=== PATIENT | female | born 1995 | race Caucasian/White ===

== ENCOUNTER 2017-03-31 14:15 | Inpatient (IN) | payer MEDICAID ==
[~2017-03-31] VITALS: Ht 157.5 cm; Wt 77.3 kg
[~2017-03-31 14:15] MED LIST: IBUP-1222 PO; ONDA4TAB7 PO; OXYC-302 PO; PREN1TAB60 PO
[2017-03-31] MEDS ORDERED: OXYTOCIN 30U/ 0.9% NaCL 500ML 500 ML IV PRN (22:00)
[2017-03-31] MEDS ORDERED: OXYTOCIN 30U/ 0.9% NaCL 500ML 500 ML IV ONE (22:00)
[2017-03-31] MEDS ORDERED: ONDANSETRON 2MG/ML, 2ML IVPush PRN (22:00)
[2017-03-31] MEDS ORDERED: FENTANYL PF 100 MCG/2ML IV PRN (22:00)
[2017-03-31] MEDS ORDERED: FENTANYL PF 100 MCG/2ML IVPush PRN (22:00)
[2017-03-31 22:28] LABS: HEMATOCRIT 32.4 % (34.6-47.8); HEMOGLOBIN 10.3 g/dL (11.7-16.4); WHITE BLOOD COUNT 11.3 x10^3/uL (3.4-10)
[2017-03-31] MEDS ORDERED: PLEASE ENTER HEIGHT AND WEIGHT MC SCH (22:30)
[2017-03-31 22:49] VITALS: BP 115/60
[2017-03-31] MEDS: D5%-LACTATED RINGERS 1,000 ML IV SCH (23:02)
[2017-03-31] MEDS ORDERED: SODIUM CITRATE/CITRIC ACID 30 ML UDC PO PRN (23:30)
[2017-03-31] MEDS ORDERED: CALCIUM CARBONATE 500 MG TAB.CHEW PO PRN (23:30)
[2017-03-31] MEDS ORDERED: METOCLOPRAMIDE 5 MG/ML, 2ML IVPush PRN (23:30)
[2017-04-01] MEDS: LACTATED RINGERS 1,000 ML IV SCH ×3 (00:15→13:18)
[2017-04-01] MEDS ORDERED: MISOPROSTOL 25 MCG TABLET ONE ×2 (03:46)
[2017-04-01] MEDS ORDERED: NEWBORN KIT ONE (03:47)
[2017-04-01] MEDS ORDERED: OXYTOCIN 30U/ 0.9% NaCL 500ML 500 ML ONE ×2 (03:47→20:51)
[2017-04-01] MEDS: MISOPROSTOL 25 MCG TABLET VG PRN ×2 (04:08)
[2017-04-01] MEDS: D5%-LACTATED RINGERS 1,000 ML IV SCH ×2 (07:02→15:02)
[2017-04-01] MEDS ORDERED: LIDOCAINE/PF 1.5%-EPI 1:200K, 30ML ONE (13:30)
[2017-04-01] MEDS ORDERED: FENTANYL/BUPIV./NS/PF 250 ML EPIDCONT ONE (13:30)
[2017-04-01] MEDS ORDERED: FENTANYL/BUPIV./NS/PF 250 ML EPIDCONT SCH (14:33)
[2017-04-01] MEDS ORDERED: LACTATED RINGERS 1,000 ML IV SCH (14:33)
[2017-04-01] MEDS ORDERED: LACTATED RINGERS 1,000 ML IVBOLUS PRN (15:00)
[2017-04-01] MEDS ORDERED: CALCIUM CARBONATE 500 MG TAB.CHEW PO PRN (18:30)
[2017-04-01] MEDS ORDERED: MAGNESIUM HYDROXIDE 8%, 30ML UDC PO PRN (18:30)
[2017-04-01] MEDS ORDERED: MEASLES,MUMPS&RUBELLA VACC/PF 0.5 ML SQ-VACC PRN (18:30)
[2017-04-01] MEDS ORDERED: ONDANSETRON 2MG/ML, 2ML IV PRN (18:30)
[2017-04-01] MEDS ORDERED: OXYcodone/APAP 5/325MG TABLET PO PRN ×2 (18:30)
[2017-04-01] MEDS ORDERED: ACETAMINOPHEN 325 MG TABLET PO PRN ×2 (18:30)
[2017-04-01] MEDS ORDERED: MISOPROSTOL 200 MCG TABLET PR PRN (18:30)
[2017-04-01] MEDS ORDERED: RHOGAM FROM BLOOD BANK 1 NOTE EA IM/IV ONE (18:30)
[2017-04-01] MEDS ORDERED: DOCUSATE 100 MG CAPSULE PO PRN (18:30)
[2017-04-01] MEDS ORDERED: DIPH,PERTUSS(ACELL),TET VAC/PF NC IM-VACC PRN (18:30)
[2017-04-01] MEDS ORDERED: IBUPROFEN 600 MG TABLET ONE (20:50)
[2017-04-01] MEDS: OXYTOCIN 30U/ 0.9% NaCL 500ML 500 ML IV SCH (20:53)
[2017-04-01] MEDS: IBUPROFEN 600 MG TABLET PO PRN (20:53)
[2017-04-01 22:10] VITALS: BP 112/61
[2017-04-02 01:46] VITALS: BP 105/64
[2017-04-02] MEDS: OXYTOCIN 30U/ 0.9% NaCL 500ML 500 ML IV SCH ×2 (04:18→14:18)
[2017-04-02 04:40] VITALS: BP 105/65
[2017-04-02 06:02] LABS: HEMATOCRIT 29.5 % (34.6-47.8); HEMOGLOBIN 9.6 g/dL (11.7-16.4); WHITE BLOOD COUNT 13.2 x10^3/uL (3.4-10)
[2017-04-02 07:55] VITALS: BP 113/71
[2017-04-02] MEDS ORDERED: PRENATAL VIT/IRON/FA 1 EACH TABLET PO SCH (09:00)
[2017-04-02 11:45] VITALS: BP_SYST 104; BP_SYST 108; BP_DIAS 60; BP_DIAS 64
[2017-04-02] MEDS: IBUPROFEN 600 MG TABLET PO PRN ×2 (11:48→19:35)
[2017-04-02] MEDS ORDERED: IBUP-1222 PO (12:50)
[2017-04-02 15:45] VITALS: BP 109/59
== END 2017-04-02 20:38 | disposition home or self-care (01) | DRG 775 ==
LOC: LDIP 21:58 → 2NW 04-01 22:08
PROVIDERS: ADMIT Obstetrics & Gynecology; ATTEND Obstetrics & Gynecology
PROC: 10E0XZZ Delivery of Products of Conception, External Approach (ICD-10-PCS; principal; 2017-03-31)
PROC: 3E033VJ Introduction of Other Hormone into Peripheral Vein, Percutaneous Approach (ICD-10-PCS; 2017-03-31)
PROC: 30233S1 Transfusion of Nonautologous Globulin into Peripheral Vein, Percutaneous Approach (ICD-10-PCS; 2017-03-31)
DX: O69.1XX0 Labor and delivery complicated by cord around neck, with compression, not applicable or unspecified (principal); Z23 Encounter for immunization; Z37.0 Single live birth; Z3A.39 39 weeks gestation of pregnancy
CPT/HCPCS: 36415; 76815; 82803; 85025; 85461; 86850; 86900; J2790; J2590; J7120